=== PATIENT | male | born 1980 ===

== ENCOUNTER 2019-04-08 15:58 | Emergency (ER) | payer SELFPAY ==
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
[2019-04-08 17:05] VITALS: BP 141/91; TEMP 97.3; O2SAT 100
== END 2019-04-08 16:59 | disposition home or self-care (01) ==
LOC: ER 15:58
DX: S39.012A Strain of muscle, fascia and tendon of lower back, initial encounter (principal); S16.1XXA Strain of muscle, fascia and tendon at neck level, initial encounter; V89.2XXA Person injured in unspecified motor-vehicle accident, traffic, initial encounter; Z72.0 Tobacco use
CPT/HCPCS: 99283